=== PATIENT | female | born 1955 | race Caucasian/White ===

== ENCOUNTER 2020-05-10 04:42 | Emergency (ER) | payer MEDICARE, OTHER ==
[~2020-05-10] VITALS: Ht 177.8 cm; Wt 100.7 kg
[~2020-05-10 04:42] MED LIST: ALLEGRA60 MG PO; CENTRUM SILVER1 EACH PO; FERROUS SULFATE28 MG PO; GARCINIA CAMBO1 EACH PO; MAXZIDE 37.5 MG-1 EA PO; MIRAPEX0.125 MG PO; OMEPRAZOLE20 M1 PO
[2020-05-10] MEDS ORDERED: STOOL SOFTENER250 MG PO (06:55)
[2020-05-10] MEDS ORDERED: HYDROCODON-ACE1 EA10 PO (06:55)
[2020-05-11] MEDS ORDERED: FLONASE ALLERG9.9 ML (08:45)
[2020-05-11] MEDS ORDERED: PROAIR HFA8.5 GM INH (08:46)
[2020-05-11] MEDS ORDERED: MONTELUKAST SOD10 MG PO (08:46)
== END 2020-05-10 07:11 | disposition home or self-care (01) ==
LOC: ED 04:42
DX: S82.852A Displaced trimalleolar fracture of left lower leg, initial encounter for closed fracture (principal); W10.9XXA Fall (on) (from) unspecified stairs and steps, initial encounter; J45.909 Unspecified asthma, uncomplicated; K21.9 Gastro-esophageal reflux disease without esophagitis; Z79.899 Other long term (current) drug therapy
CPT/HCPCS: 27818; 73590; 73610; 99152; 99283-25; J2704

== ENCOUNTER 2020-05-13 05:55 | Day surgery (SDC) | payer MEDICARE, OTHER ==
[~2020-05-13] VITALS: Ht 177.8 cm; Wt 101.0 kg
[~2020-05-13 05:55] MED LIST changes: +FLONASE ALLERG9.9 ML; +HYDROCODON-ACE1 EA10 PO; +MONTELUKAST SOD10 MG PO; +PROAIR HFA8.5 GM INH; +STOOL SOFTENER250 MG PO
[2020-05-13] MEDS ORDERED: CELECOXIB200 MG PO (08:10)
[2020-05-13] MEDS ORDERED: HYDROCODON-ACE1 EA11 PO (08:11)
--- NOTE | 2020-05-13 08:14 | NUR ---
05/13/20 0814 Lora Farley 0803 PT TO PACU SLEEPY BUT AROUSABLE .
--- NOTE | 2020-05-13 08:54 | NUR ---
ON BEDPAN ON RETURN VOIDS 300 CLEAR YELLOW URINE. FAMILY AT BEDSIDE.
--- NOTE | 2020-05-13 11:19 | OR ---
[facility] [address] [facility] [place], [place] [address] Signed DATE OF OPERATION: 05/13/2020 SURGEON: Ye Farley MD PREOPERATIVE DIAGNOSIS: Left bimalleolar ankle fracture. POSTOPERATIVE DIAGNOSIS: Left bimalleolar ankle fracture. PROCEDURE PERFORMED: Open reduction and internal fixation of left ankle. TABLE ASSEMBLER METAL: None. ANESTHESIA: General. BLOOD LOSS: Minimal. TOURNIQUET TIME: 35 minutes. IMPLANTS: Arthrex 7 hole / plate with 10 screws. BRIEF HISTORY: Taisha is a 65-year-old female with a fracture dislocation of her ankle about 3 days ago. She suffered a ground level fall after missing a step and rolled her ankle. She was reduced and splinted in the ER. The reduction was relatively good. Risks and benefits of operative treatment were discussed with her and she elected to proceed. DESCRIPTION OF PROCEDURE: Once consent was obtained, she was taken to the operating room after adequate anesthesia. She was placed on the operating room table. All downside pressure points were well padded. A well-padded proximal thigh tourniquet was placed. The leg was then prepped and draped in the standard sterile fashion. The leg was exsanguinated using Esmarch bandage, tourniquet inflated to 250 mmHg. The lateral side was approached Electronically Signed By: YE FARLEY MD 05/13/20 1119 PATIENT NAME: TAISHA JAUREGUI OPERATIVE REPORT DATE OF : 55 REPORT #: [id number] PHYSICIAN: YE FARLEY MD PCP: JOEY BENOIT MD REPORT IS CONFIDENTIAL AND NOT TO BE RELEASED WITHOUT AUTHORIZATION [facility] [address] [place], [place] [address] Signed first. Careful radiographs were undertaken, which showed no evidence of a posterior malleolar fracture. The approach to the lateral side was made through a longitudinal incision, carried down through the skin and subcutaneous tissue and directly down on the fibula. The periosteum was split and elevated anteriorly and posteriorly. The fracture was distracted and cleaned of debris. Using a lobster claw, it was then clamped into position and checked using image intensifier. It was found to be well reduced. A standard AO lag screw was placed from anterior to posterior locking the fragments together. We then placed the neutralization plate laterally and held it with a central screw. It was then adjusted to fit the lateral malleolus and the remaining screw holes were drilled and appropriate length screws were placed. A locking screw was placed in the distal portion of the plate. The wound was then copiously irrigated with antibiotic solution, closed with 2-0 Monocryl and stewart. Attention was then turned to the medial side. A longitudinal 2-inch incision was made over the medial malleolus, carried through the skin and subcutaneous tissue. The fracture was distracted. The periosteum was flipped out of the fracture site and it was reduced and held with a clamp. The reduction was then checked and found to be anatomic. A K-wire was placed in the posterior half of the malleolus, which was a large chunk. The screw was placed in the anterior portion of medial malleolus and advanced until it was well set. The pin was then removed and a 2nd screw was placed. Final radiograph showed the fracture to be well reduced and the two screws in good position. The wound was copiously irrigated and again closed using 2-0 Monocryl and stewart. Both wounds were then cleansed and dressed with Acticoat 7 dressings and sterile cast padding. She was placed in a posterior splint with stirrups. She tolerated the procedure well. All sponge, needle, and instrument counts were correct. Ye Farley MD BA/MODL /[id number] Copies: ~ Electronically Signed By: YE FARLEY MD 05/13/20 1119 PATIENT NAME: TAISHA JAUREGUI OPERATIVE REPORT DATE OF : 55 REPORT #: [id number] PHYSICIAN: YE FARLEY MD PCP: JOEY BENOIT MD REPORT IS CONFIDENTIAL AND NOT TO BE RELEASED WITHOUT AUTHORIZATION
== END 2020-05-13 10:15 | disposition home or self-care (01) ==
LOC: DS 05:55
PROVIDERS: ATTEND Specialist
PROC: 0QSK04Z Reposition Left Fibula with Internal Fixation Device, Open Approach (ICD-10-PCS; 2020-05-13)
PROC: 0QSH04Z Reposition Left Tibia with Internal Fixation Device, Open Approach (ICD-10-PCS; principal; 2020-05-13 06:45)
DX: S82.842A Displaced bimalleolar fracture of left lower leg, initial encounter for closed fracture (principal); G89.18 Other acute postprocedural pain; J45.909 Unspecified asthma, uncomplicated; K21.9 Gastro-esophageal reflux disease without esophagitis; I34.1 Nonrheumatic mitral (valve) prolapse; W10.8XXA Fall (on) (from) other stairs and steps, initial encounter
CPT/HCPCS: 01480; 64445; 64447; 73600; 76942; A9270; C1713; C1769; J0690; J1100; J1885; J2001; J2250; J2405; J2704; J2795; J7121

== ENCOUNTER 2024-06-08 11:53 | Day surgery (SDC) | payer MEDICARE, OTHER ==
[~2024-06-08] VITALS: Ht 177.8 cm; Wt 87.3 kg
[~2024-06-08 11:53] MED LIST changes: +CELECOXIB200 MG PO; +HYDROCODON-ACE1 EA11 PO; +IBLOOD GLUCOSE TEST STRIP 1 EA TEST VI PRN; +LACTATED RINGER'S 1,000 ML IV SCH; +LIDOCAINE HCL 1% 5 ML SDV INJ ONE; +LIDOCAINE HCL 4% 50 ML BTL TOP SCH; +MIDAZOLAM HCL 5 MG/5 ML VIAL IV PRN; +fentaNYL citrate 100 MCG/2 ML VIAL IV PRN
[2024-06-08 12:17] VITALS: BP 140/73
[2024-06-08] MEDS ORDERED: MIDAZOLAM HCL 5 MG/5 ML VIAL ONE (12:18)
[2024-06-08] MEDS ORDERED: fentaNYL citrate 100 MCG/2 ML VIAL ONE (12:18)
[2024-06-08] MEDS ORDERED: LISINOPRIL30 MG PO (12:19)
[2024-06-08] MEDS ORDERED: B COMPLEX1 EACH PO (12:20)
[2024-06-08] MEDS ORDERED: CALCIUM CITRAT1 EAC9 PO (12:21)
[2024-06-08] MEDS ORDERED: ROPINIROLE HCL0.5 MG PO (12:22)
[2024-06-08] MEDS ORDERED: ADULT ASPIRIN R81 MG PO (12:22)
[2024-06-08] MEDS ORDERED: IRON325 M1 PO (12:24)
--- NOTE | 2024-06-08 13:43 | NUR ---
06/08/24 1343 Lora Farley 1333 PT TO PACU SLEEPY BUT RESPONDS TO VERBAL STIMULI.
[2024-06-08 14:01] VITALS: BP 152/77
--- NOTE | 2024-06-09 17:24 | OR ---
[facility] [address] [place], [place] [address] Signed DATE OF OPERATION: 06/08/2024 SURGEON: Izabela Adan MD PREOPERATIVE DIAGNOSES: 1. Persistent epigastric pain and negative biliary workup. 2. Persistent long-standing aspirin use. POSTOPERATIVE DIAGNOSIS: Multiple ulcers including kissing ulcer of pylorus and prepyloric ulcers. PROCEDURE: Esophagogastroduodenoscopy with biopsy. ANESTHESIA: Intravenous sedation; fentanyl 100 mcg and Versed 4 mg. INDICATION: This 69-year-old white woman is a patient of JOYCELYN Carroll. She has been having significant progressive epigastric pain. A thorough biliary workup confirmed a normal ultrasound and a CCK-HIDA test with an 88% ejection fraction without reproduction of symptoms. She does have family history of biliary disease. The patient is on omeprazole for long-standing reflux disease. She admitted ultimately to taking approximately six aspirin (325 mg) daily for arthritic pain. Strong suspicion is maintained for peptic disease related to aspirin use despite being on PPI medication. She is admitted at this time to undergo upper endoscopy to confirm that suspicion. She understands the risk of bleeding, infection, and perforation. FINDINGS: Indeed she did have ulcer disease. There were at least three prepyloric ulcers minimum which were deep and none which were bleeding. There were two channel ulcers in the pyloric channel itself. The duodenum itself was negative. CLOtest was -15 minutes post procedure. DESCRIPTION OF PROCEDURE: The patient was brought to the endoscopy suite and placed in the lateral decubitus position, underwent lidocaine hypopharyngeal anesthesia. She was given intravenous sedation to the point of slurred speech and nystagmus with full cardiopulmonary monitoring. A bite block was placed. An Olympus video upper endoscope was passed in the hypopharynx. The vocal cords were normal. The scope was advanced to the esophagus, Electronically Signed By: IZABELA ADAN MD 06/09/24 3114 PATIENT NAME: LEE JAUREGUI OPERATIVE REPORT DATE OF : 55 REPORT #: [id number] PHYSICIAN: IZABELA ADAN MD PCP: MIRZA SIMONS PAC REPORT IS CONFIDENTIAL AND NOT TO BE RELEASED WITHOUT AUTHORIZATION [facility] [address] [place], [place] [address] Signed throughout its length it was normal. The scope was then advanced to the stomach which was insufflated with air. There were multiple polyps, all of them fundic gland type polyps, no doubt related to prior PPI use. Upon passage to the antrum where some erosive changes and ultimately at least three small ulcers, one of them prepyloric and the other two proximal to that area. The scope was passed through the pylorus into the duodenum, second, third portions and bulbar portions were normal. There was, however, a channel ulceration (kissing ulcers) which were small with kline white base. The scope was withdrawn and biopsies taken of the antrum for both AUBRIE and pathologic testing. Retroflexed view was undertaken showing a reasonable flap valve at this time. Gastric polyps were noted no doubt related to chronic PPI use. The scope was withdrawn and biopsies taken of the distal esophagus and mid esophagus. Scope was then removed. She tolerated the procedure well. 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 PLAN: She will continue PPI medication, omeprazole 20 mg daily. She should have no further aspirin, Motrin, or other nonsteroidals for the time being. We will prescribe additionally Carafate 1 g p.o. q.i.d. for at least four weeks. I will see her back in the office in approximately 6 to 8 weeks. Should she have problems in the meantime, she will let me know. MD VIANCA Guo/JOANIEL /[id number] cc: JOYCELYN Carroll. Electronically Signed By: IZABELA ADAN MD 06/09/24 1724 PATIENT NAME: LEE JAUREGUI OPERATIVE REPORT DATE OF : 55 REPORT #: [id number] PHYSICIAN: IZABELA ADAN MD PCP: MIRZA SIMONS PAC REPORT IS CONFIDENTIAL AND NOT TO BE RELEASED WITHOUT AUTHORIZATION [facility] [address] [place] [address] Signed Copies: ~ Electronically Signed By: IZABELA ADAN MD 06/09/24 1724 PATIENT NAME: LEE JAUREGUI OPERATIVE REPORT DATE OF : 55 REPORT #: [id number] PHYSICIAN: IZABELA ADAN MD PCP: MIRZA SIMONS PAC REPORT IS CONFIDENTIAL AND NOT TO BE RELEASED WITHOUT AUTHORIZATION
--- NOTE | 2024-06-10 10:41 | PATH ---
[facility] [address] [place], [place] [address] Signed SPECIMEN(S): A DUODENAL BIOPSY SPECIMEN(S): B ANTRUM BIOPSY SPECIMEN(S): C LOWER ESOPHAGEAL BIOPSY SPECIMEN(S): D MIDDLE ESOPHAGEAL BIOPSY SPECIMEN SOURCE: A. DUODENAL BIOPSY B. ANTRUM BIOPSY C. LOWER ESOPHAGEAL BIOPSY D. MIDDLE ESOPHAGEAL BIOPSY CLINICAL HISTORY: Epigastric pain, reflux with esophagitis. Post: Multiple ulcers. FINAL PATHOLOGIC DIAGNOSIS: A. Duodenum, biopsy: - Duodenal mucosa with no significant pathologic changes B. Stomach, biopsy: - Gastric antral and oxyntic mucosa with no significant pathologic changes - Negative for Helicobacter pylori with HE stains C. Esophagus, lower, biopsy: - Esophageal squamous mucosa with no significant pathologic changes D. Esophagus, middle, biopsy: - Esophageal squamous mucosa with no significant pathologic changes BRP MICROSCOPIC EXAMINATION: Histologic sections of all submitted blocks are examined by light microscopy. These findings, together with the gross examination, support the pathologic diagnosis. GROSS DESCRIPTION: A. The specimen, labeled and designated "Juventino, duodenum biopsy," is received in formalin and consists of two jackson soft tissue fragments, ranging from 0.2 cm. Entirely submitted in (A1). B. The specimen, labeled and designated "Juventino, antrum biopsy," is received in formalin and consists of three jackson soft tissue fragments, ranging from 0.2 cm. Entirely submitted in (B1). C. The specimen, labeled and designated "Juventino, lower esophagus biopsy," is received in formalin and consists of two jackson soft tissue fragments, ranging from 0.1 to 0.2 cm. Entirely submitted in (C1). PATIENT NAME: LEE JAUREGUI PATHOLOGY DATE OF : 55 REPORT #: [id number] PHYSICIAN: YESENIA GALVEZ PCP: MIRZA SIMONS PAC REPORT IS CONFIDENTIAL AND NOT TO BE RELEASED WITHOUT AUTHORIZATION [facility] [address] [place], [place] [address] Signed D. The specimen, labeled and designated "Juventino, middle esophagus biopsy," is received in formalin and consists of three jackson soft tissue fragments, ranging from 0.1 cm. Entirely submitted in (D1). JS (under the direct supervision of a pathologist) The Gross Description was prepared using a voice recognition system. The report was reviewed for accuracy; however, sound-alike word errors, addition and/or deletions may occur. If there is any question about this report, please contact Client Services. ADDITIONAL NOTES: Immunohistochemical and/or in situ hybridization studies if performed in this case included appropriate positive controls that reacted as expected. This test was developed and its performance characteristics determined by [facility]. It has not been cleared or approved by the U.S. Food and Drug Administration. The FDA has determined that such clearance or approval is not necessary. This test is used for clinical purposes. It should not be regarded as investigational or for research. [facility] is certified under the Clinical Laboratory Improvement Amendments of 1988 (CLIA) as qualified to perform high complexity clinical laboratory testing. Technical component was performed by [facility], [address] [place] [id number] (CLIA# [id number]). Professional interpretation was performed by [facility], [address] [place] [address] (CLIA#: [id number]). Diagnostician: Nirmal Dorado MD Pathologist Electronically Signed 06/10/2024 Copies: ~ PATIENT NAME: JUVENTINOLEETONA JALLOH PATHOLOGY DATE OF : 55 REPORT #: [id number] PHYSICIAN: YESENIA GALVEZ PCP: MIRZA SIMONS PAC REPORT IS CONFIDENTIAL AND NOT TO BE RELEASED WITHOUT AUTHORIZATION
== END 2024-06-08 14:15 | disposition home or self-care (01) ==
LOC: DS 11:53
PROVIDERS: ATTEND Surgery
PROC: 0DB68ZX Excision of Stomach, Via Natural or Artificial Opening Endoscopic, Diagnostic (ICD-10-PCS; principal; 2024-06-08 13:00)
DX: K25.9 Gastric ulcer, unspecified as acute or chronic, without hemorrhage or perforation (principal); K31.7 Polyp of stomach and duodenum; K21.00 Gastro-esophageal reflux disease with esophagitis, without bleeding; K42.0 Umbilical hernia with obstruction, without gangrene; I10 Essential (primary) hypertension; M17.0 Bilateral primary osteoarthritis of knee; J45.909 Unspecified asthma, uncomplicated; Z79.899 Other long term (current) drug therapy
CPT/HCPCS: 99153; G0500; J2250; J3010; J7121